=== PATIENT | male | born 1965 | race Caucasian/White ===

== ENCOUNTER 2019-02-12 11:51 | Inpatient (IN) | payer SELFPAY ==
[~2019-02-12] VITALS: Ht 188 cm; Wt 129.3 kg
[2019-02-12] MEDS ORDERED: methylPREDNISolone SOD SUCC 125 MG/2 ML VL ONE (11:58)
[2019-02-12] MEDS ORDERED: methylPREDNISolone SOD SUCC 125 MG/2 ML VL IV ONE (12:00)
[2019-02-12] MEDS ORDERED: MORPHINE SULF INJ 2 MG/ML SYRINGE 1ML IV ONE (12:00)
[2019-02-12] MEDS ORDERED: SODIUM CHLORIDE 0.9% 1,000 ML IV ONE (12:00)
[2019-02-12] MEDS ORDERED: FAMOTIDINE (10MG/ML) 2ML VL IV ONE (12:00)
[2019-02-12] MEDS ORDERED: ONDANSETRON HCL 4 MG/2 ML VIAL ONE (12:07)
[2019-02-12] MEDS ORDERED: ONDANSETRON HCL 4 MG/2 ML VIAL IV ONE (12:15)
[2019-02-12] MEDS ORDERED: diphenhdrAMINE HCL 50 MG/1 ML VL IV ONE ×2 (13:15)
[2019-02-12] MEDS ORDERED: PROCHLORPERAZINE EDISYLATE 5 MG/ML 2ML VIAL IV ONE (13:30)
[2019-02-12] MEDS ORDERED: ACETAMINOPHEN 500 MG TAB PO PRN (16:00)
[2019-02-12] MEDS ORDERED: MORPHINE SULF INJ 2 MG/ML SYRINGE 1ML IV PRN (16:00)
[2019-02-12] MEDS ORDERED: NITROGLYCERIN 0.4 MG SL TAB SL PRN (16:00)
[2019-02-12] MEDS ORDERED: PROMETHAZINE HCL 25 MG/ML 1ML IV PRN (16:00)
[2019-02-12] MEDS ORDERED: TEMAZEPAM 15 MG CAP PO PRN (16:00)
[2019-02-12] MEDS ORDERED: ALBUTEROL SULF 2.5 MG/0.5ML(0.5%) NEB SOLN NEB PRN (16:00)
[2019-02-12] MEDS ORDERED: traMADol HCL 50 MG TAB PO PRN (16:00)
[2019-02-12 16:19] LABS: Albumin 3.5 g/dL (3.4-5.0); Calcium 8.6 mg/dL (8.5-10.1); Potassium 4.1 mmol/L (3.5-5.1)
[2019-02-12 16:23] LABS: BUN/Creatinine Ratio 15.6; Bilirubin, Total 0.4 mg/dL (0.2-1.0)
[2019-02-12 16:27] LABS: Basophils # (auto) 0.1 uL; Basophils % (auto) 0.8 % (0.0-2.0); Eosinophils # (auto) 0 uL; Lymphocytes # (auto) 0.4 uL; Lymphocytes % (auto) 2.7 % (10.0-50.0); Mean Corpuscular Hemoglobin 30.8 pg (28.0-32.0); Mean Corpuscular Hgb Conc. 34.1 g/dL (32.0-36.0); Mean Corpuscular Volume 90.3 fL (80.0-100.0); Monocytes # (auto) 0.6 uL; Monocytes % (auto) 3.4 % (0.0-12.0); Neutrophils # (auto) 15.1 uL; Neutrophils % (auto) 93.1 % (37.0-80.0); Platelet Count (auto) 212 10^3/uL (140-450); Red Cell Distribution Width 13.4 % (11.8-14.3); White Blood Cell 16.3 10^3/uL (4.4-10.8)
[2019-02-12 16:45] VITALS: BP 144/96
[2019-02-12] MEDS: methylPREDNISolone SOD SUCC 40 MG/ML VL IV SCH (17:05)
[2019-02-12] MEDS: SODIUM CHLORIDE 0.9% 1,000 ML IV SCH (17:05)
--- NOTE | 2019-02-12 18:20 | NUR ---
Respiratory note: ASSESSED PT FOR PRN MED NEB TX. PT IS CURRENTLY ON ROOM AIR: HR 86, RR 18, SPO2 94%. PT SHOWS NO S/S OF SOB OR RESPIRATORY DISTRESS. INFORMED PT TO CONTACT RESPIRATORY IF SOB OCCURS. WILL CONTINUE TO MONITOR.
[2019-02-12 18:40] VITALS: BP 136/84
--- NOTE | 2019-02-12 19:30 | NUR ---
Opening shift note Assumed patient care. Patient in bed watching tv alert and oriented. Pt's respiration even and unlabored, denies pain and discomfort at this time. Plan of care discussed, patient verbalized understanding. All needs attended, will continue to monitor.
[2019-02-12] MEDS ORDERED: diphenhdrAMINE HCL 12.5 MG/5 ML UD PO PRN (20:00)
[2019-02-12 22:00] VITALS: BP 131/76
[2019-02-13] MEDS: methylPREDNISolone SOD SUCC 40 MG/ML VL IV SCH (04:22)
[2019-02-13] MEDS: SODIUM CHLORIDE 0.9% 1,000 ML IV SCH (04:56)
[2019-02-13 05:00] VITALS: BP 122/78
--- NOTE | 2019-02-13 07:35 | NUR ---
Opening Shift Note Assumed care of patient, awake,alert and oriented x4 . No S/S of distress/SOB or pain. Instructed on POC and to call for assist PRN, will continue to monitor for changes Q1hr and PRN. Bed at lowest locked position, bed side rails up x2 and call light within reach.
[2019-02-13 08:00] VITALS: BP 120/81
[2019-02-13 09:00] VITALS: BP 120/81
--- NOTE | 2019-02-13 10:30 | NUR ---
AMA Note KAY OKEEFE states they want to leave the hospital Against Medical Advice (AMA). Patient encouraged to stay for further treatment/stabilization. Vy Hodgson MD notified of patient's wishes. Patient advised of the risks and benefits of leaving AMA. Patient verbalized understanding. Patient encouraged to return to the ER if symptoms do not improve or worsen.
== END 2019-02-13 10:30 | disposition left against medical advice (07) | DRG 916 ==
LOC: ER 11:51 → EDBD 11:51 → TELE 11:52 → TELE-EAST 17:55
PROVIDERS: ADMIT Internal Medicine; ATTEND Family Medicine
DX: T78.2XXA Anaphylactic shock, unspecified, initial encounter (principal); Z91.030 Bee allergy status; Z53.21 Procedure and treatment not carried out due to patient leaving prior to being seen by health care provider; E66.9 Obesity, unspecified; Y82.8 Other medical devices associated with adverse incidents; Y92.89 Other specified places as the place of occurrence of the external cause; Z68.36 Body mass index [BMI] 36.0-36.9, adult; Z79.899 Other long term (current) drug therapy
CPT/HCPCS: 36415; 80053; 85025; 94761; 96361; 96374; 96375; 99291; G0378; J2405; J3490